=== PATIENT | female | born 1990 | race Asian ===

== ENCOUNTER 2020-08-09 20:18 | Emergency (ER) | payer MEDICAID ==
[~2020-08-09] VITALS: Ht 170.2 cm; Wt 61.2 kg
--- NOTE | 2020-08-09 20:28 | NUR ---
at bedside for assessment
[2020-08-09 20:45] LABS: *BILIRUBIN,URIN NEGATIVE (NEGATIVE); *BLOOD, URINE NEGATIVE (NEGATIVE); *CLARITY,URINE CLEAR (CLEAR); *COLOR,URINE LIGHT YELLOW (YELLOW); *KETONES,URINE NEGATIVE (NEGATIVE); *UROBILINOGEN,URINE 0.2 E.U./dl (NORMAL); LEUKOCYTE ESTERASE ,URINE NEGATIVE (NEGATIVE); NITRITE, URINE NEGATIVE (NEGATIVE); PH,URINE 7.5 (5.0-8.0); UGLUCOSE NEGATIVE (NEGATIVE)
[2020-08-09] MEDS ORDERED: ONDANSETRON ODT 4 MG TAB.RAPDIS SL ONE (20:45)
[2020-08-09 20:47] LABS: *URINE HCG, QUAL NEGATIVE (NEGATIVE)
[2020-08-09] MEDS ORDERED: ONDANSETRON ODT 4 MG TAB.RAPDIS ONE (20:47)
[2020-08-09 20:49] LABS: BASOPHILS % (AUTO) 0.2 % (0.0-2.0); EOSINOPHILS # (AUTO) 0.2 K/uL (0.0-0.7); EOSINOPHILS % (AUTO) 2.4 % (0.0-7.0); HEMATOCRIT 39.3 % (31.2-41.9); HEMOGLOBIN 13.5 g/dL (10.9-14.3); LYMPHOCYTES # (AUTO) 1.7 K/uL (20.0-40.0); LYMPHOCYTES % (AUTO) 24.2 % (20.5-51.5); MEAN CORPUSCULAR HEMOGLOBIN 30.8 uug (24.7-32.8); MEAN CORPUSCULAR HGB CONC 34 g/dL (32.3-35.6); MEAN CORPUSCULAR VOLUME 89.7 fL (75.5-95.3); MONOCYTES # (AUTO) 0.6 K/uL (2.0-10.0); MONOCYTES % (AUTO) 8.9 % (0.0-11.0); NEUTROPHILS # (AUTO) 4.4 K/uL (1.8-8.9); NEUTROPHILS % (AUTO) 64.3 % (38.5-71.5); PLATELET COUNT (AUTO) 274 K/uL (179-408); RED BLOOD CELL COUNT(AUTO) 4.38 MIL/uL (3.63-4.92); WHITE BLOOD COUNT (AUTO) 6.9 K/uL (3.8-11.8)
[2020-08-09 20:55] LABS: CREATININE 0.6 mg/dL (0.6-1.3); POTASSIUM 3.7 mmol/L (3.5-5.1)
[2020-08-09 21:01] LABS: BILIRUBIN,DIRECT 0.1 mg/dL (0.0-0.2); BILIRUBIN,TOTAL 0.4 mg/dL (0.2-1.0)
--- NOTE | 2020-08-09 22:23 | NUR ---
Patient discharged to home in stable condition. No signs of distress, noted ambulating with steady gait. Took all belongings. Written and verbal after care instructions given. Patient verbalizes understanding of instructions. Stressed follow up or return to ER for worsening s/s.
[2020-08-09 22:26] VITALS: BP 111/67
== END 2020-08-09 22:25 | disposition home or self-care (01) ==
LOC: ER 20:21
DX: R10.32 Left lower quadrant pain (principal); K59.00 Constipation, unspecified; Z87.898 Personal history of other specified conditions
CPT/HCPCS: 36415; 76856; 83690; 84703; 85025; A4663; Q0162

== ENCOUNTER 2020-09-04 19:50 | Emergency (ER) | payer MEDICAID ==
[~2020-09-04] VITALS: Ht 170.2 cm; Wt 61.7 kg
--- NOTE | 2020-09-04 20:00 | NUR ---
Dr Nathan at bedside for MSE. Urine sample sent to lab.
[2020-09-04 20:10] LABS: *URINE HCG, QUAL NEGATIVE (NEGATIVE)
--- NOTE | 2020-09-04 20:19 | NUR ---
Patient discharged to home in stable condition. Written and verbal after care instructions given. Patient verbalizes understanding of instructions. Stressed follow up or return to ER for worsening s/s. Ambulated out of ED in steady gait.
[2020-09-04 20:38] VITALS: BP 107/70
== END 2020-09-04 20:20 | disposition home or self-care (01) ==
LOC: ER 19:51
DX: Z32.02 Encounter for pregnancy test, result negative (principal)
CPT/HCPCS: 84703; A4663

== ENCOUNTER 2021-03-18 13:11 | Emergency (ER) | payer BC, MEDICAID ==
[~2021-03-18] VITALS: Ht 170.2 cm; Wt 60.3 kg
--- NOTE | 2021-03-18 14:05 | NUR ---
Patient moved from ER room 2B to 4B with steady gait.
[2021-03-18 14:10] LABS: CREATININE 0.7 mg/dL (0.6-1.3); POTASSIUM 4.7 mmol/L (3.5-5.1)
[2021-03-18 14:11] LABS: BASOPHILS % (AUTO) 0.6 % (0.0-2.0); EOSINOPHILS # (AUTO) 0.1 K/uL (0.0-0.7); HEMOGLOBIN 13.2 g/dL (10.9-14.3); LYMPHOCYTES # (AUTO) 1.4 K/uL (20.0-40.0); MEAN CORPUSCULAR HEMOGLOBIN 30.8 uug (24.7-32.8); MEAN CORPUSCULAR HGB CONC 34 g/dL (32.3-35.6); MEAN CORPUSCULAR VOLUME 90.8 fL (75.5-95.3); MONOCYTES # (AUTO) 0.5 K/uL (2.0-10.0); MONOCYTES % (AUTO) 9.3 % (0.0-11.0); NEUTROPHILS # (AUTO) 3.5 K/uL (1.8-8.9); NEUTROPHILS % (AUTO) 62.1 % (38.5-71.5); PLATELET COUNT (AUTO) 242 K/uL (179-408); WHITE BLOOD COUNT (AUTO) 5.6 K/uL (3.8-11.8)
[2021-03-18 14:16] LABS: BILIRUBIN,DIRECT 0.1 mg/dL (0.0-0.2); BILIRUBIN,TOTAL 0.5 mg/dL (0.2-1.0); TOTAL PROTEIN, SERUM 7.6 g/dL (6.4-8.2)
[2021-03-18 14:28] LABS: *BILIRUBIN,URIN NEGATIVE (NEGATIVE); *CLARITY,URINE CLEAR (CLEAR); *COLOR,URINE LIGHT YELLOW (YELLOW); *KETONES,URINE NEGATIVE (NEGATIVE); *UROBILINOGEN,URINE 0.2 E.U./dl (NORMAL); LEUKOCYTE ESTERASE ,URINE 1+ (NEGATIVE); NITRITE, URINE NEGATIVE (NEGATIVE); PH,URINE 7.5 (5.0-8.0); UGLUCOSE NEGATIVE (NEGATIVE)
[2021-03-18 14:29] LABS: *URINE HCG, QUAL NEGATIVE (NEGATIVE)
[2021-03-18 14:30] LABS: *BLOOD, URINE TRACE INTACT (NEGATIVE)
[2021-03-18] MEDS ORDERED: AZITHROMYCIN 250 MG TABLET PO ONE (14:30)
[2021-03-18] MEDS ORDERED: CEFTRIAXONE 1 G VIAL IM ONE (14:30)
[2021-03-18] MEDS ORDERED: CEFTRIAXONE 1 G VIAL ONE (14:40)
[2021-03-18] MEDS ORDERED: AZITHROMYCIN 250 MG TABLET ONE (14:40)
[2021-03-18] MEDS ORDERED: LIDOCAINE HCL 1% 20 ML VIAL ONE (14:40)
--- NOTE | 2021-03-18 14:41 | NUR ---
Pt is refusing meds@this time, notified.
[2021-03-18 15:07] LABS: BACTERIA,URINE FEW /HPF (NONE SEEN); RBC,URINE 0-3 /HPF (0-3); SQUAMOUS EPITHELIAL CELL,UR FEW /HPF (NONE SEEN); WBC,URINE 0-3 /HPF (0-3)
--- NOTE | 2021-03-18 15:31 | NUR ---
Patient discharged to home in stable condition. Written and verbal after care instructions given. Patient verbalizes understanding of instructions. Stressed follow up or return to ER for worsening s/s. Pt. instructed to follow up with pcp.
[2021-03-18 15:32] VITALS: BP 112/68
== END 2021-03-18 15:25 | disposition home or self-care (01) ==
LOC: ER 13:11
DX: R10.30 Lower abdominal pain, unspecified (principal)
CPT/HCPCS: 36415; 76856; 84703; 85025; 87086; 87210; 87491; A4663; J0696; J3490; Q0144

== ENCOUNTER 2021-04-24 11:55 | Emergency (ER) | payer BC ==
[~2021-04-24] VITALS: Ht 170.2 cm; Wt 60.3 kg
--- NOTE | 2021-04-24 12:05 | NUR ---
at bedside for assessment
[2021-04-24 12:37] LABS: BASOPHILS % (AUTO) 0.3 % (0.0-2.0); EOSINOPHILS # (AUTO) 0.1 K/uL (0.0-0.7); EOSINOPHILS % (AUTO) 0.8 % (0.0-7.0); HEMATOCRIT 39.8 % (31.2-41.9); HEMOGLOBIN 13.4 g/dL (10.9-14.3); LYMPHOCYTES # (AUTO) 1.3 K/uL (20.0-40.0); LYMPHOCYTES % (AUTO) 18.3 % (20.5-51.5); MEAN CORPUSCULAR HEMOGLOBIN 30.5 uug (24.7-32.8); MEAN CORPUSCULAR HGB CONC 34 g/dL (32.3-35.6); MEAN CORPUSCULAR VOLUME 90.5 fL (75.5-95.3); MONOCYTES # (AUTO) 0.4 K/uL (2.0-10.0); MONOCYTES % (AUTO) 5.7 % (0.0-11.0); NEUTROPHILS # (AUTO) 5.3 K/uL (1.8-8.9); NEUTROPHILS % (AUTO) 74.9 % (38.5-71.5); PLATELET COUNT (AUTO) 227 K/uL (179-408); RED BLOOD CELL COUNT(AUTO) 4.39 MIL/uL (3.63-4.92); WHITE BLOOD COUNT (AUTO) 7.1 K/uL (3.8-11.8)
[2021-04-24 12:40] LABS: *BILIRUBIN,URIN NEGATIVE (NEGATIVE); *BLOOD, URINE NEGATIVE (NEGATIVE); *CLARITY,URINE CLEAR (CLEAR); *COLOR,URINE YELLOW (YELLOW); *KETONES,URINE NEGATIVE (NEGATIVE); *UROBILINOGEN,URINE 0.2 E.U./dl (NORMAL); LEUKOCYTE ESTERASE ,URINE NEGATIVE (NEGATIVE); NITRITE, URINE NEGATIVE (NEGATIVE); UGLUCOSE NEGATIVE (NEGATIVE)
[2021-04-24 12:41] LABS: *URINE HCG, QUAL NEGATIVE (NEGATIVE)
[2021-04-24 12:50] LABS: CREATININE 0.6 mg/dL (0.6-1.3); POTASSIUM 3.3 mmol/L (3.5-5.1)
[2021-04-24 12:56] LABS: BILIRUBIN,DIRECT 0.1 mg/dL (0.0-0.2); BILIRUBIN,TOTAL 0.4 mg/dL (0.2-1.0); TOTAL PROTEIN, SERUM 7.6 g/dL (6.4-8.2)
--- NOTE | 2021-04-24 13:11 | NUR ---
Patient discharged to home in stable condition. Written and verbal after care instructions given. Patient verbalizes understanding of instructions. Stressed follow up or return to ER for worsening s/s.
== END 2021-04-24 13:11 | disposition home or self-care (01) ==
LOC: ER 11:56
DX: R10.32 Left lower quadrant pain (principal); N85.4 Malposition of uterus; E87.6 Hypokalemia
CPT/HCPCS: 36415; 76856; 84703; 85025; A4663

== ENCOUNTER 2025-03-24 21:30 | Emergency (ER) | payer BC, OTHER ==
[~2025-03-24] VITALS: Ht 170.2 cm; Wt 58.1 kg
[2025-03-24 22:26] VITALS: BP 94/58; O2SAT 99
== END 2025-03-24 22:27 | disposition home or self-care (01) ==
LOC: ER 21:30
DX: S06.0X0A Concussion without loss of consciousness, initial encounter (principal); S16.1XXA Strain of muscle, fascia and tendon at neck level, initial encounter; R20.0 Anesthesia of skin; W22.09XA Striking against other stationary object, initial encounter; Y93.89 Activity, other specified; Y92.89 Other specified places as the place of occurrence of the external cause; Y99.0 Civilian activity done for income or pay
CPT/HCPCS: A4606; A4663

== ENCOUNTER 2025-06-21 01:07 | Emergency (ER) | payer BC, OTHER ==
[~2025-06-21] VITALS: Ht 170.2 cm; Wt 58.1 kg
[2025-06-21 01:10] VITALS: BP 106/63
[2025-06-21] MEDS ORDERED: ONDANSETRON ODT 4 MG TAB.RAPDIS ONE (03:02)
[2025-06-21] MEDS ORDERED: HYDROMORPHONE 1 MG/1 ML DISP.SYRIN ONE (03:03)
[2025-06-21] MEDS: HYDROMORPHONE 1 MG/1 ML DISP.SYRIN IM ONE (03:22)
[2025-06-21] MEDS: ONDANSETRON ODT 4 MG TAB.RAPDIS SL ONE (03:22)
[2025-06-21 03:45] VITALS: BP 103/61; TEMP 97.8; O2SAT 98
[2025-06-21 04:05] LABS: *URINE HCG, QUAL NEGATIVE (NEGATIVE)
== END 2025-06-21 03:45 | disposition home or self-care (01) ==
LOC: ER 01:22
DX: S06.0X0A Concussion without loss of consciousness, initial encounter (principal); S00.81XA Abrasion of other part of head, initial encounter; R41.0 Disorientation, unspecified; W18.2XXA Fall in (into) shower or empty bathtub, initial encounter; Y93.89 Activity, other specified; Y92.89 Other specified places as the place of occurrence of the external cause; Y99.8 Other external cause status
CPT/HCPCS: 99284; 70450; 84703; J1171; A4606; A4663; Q0162